=== PATIENT | female | born 1955 | race Hispanic/Latino ===

== ENCOUNTER 2017-08-08 12:05 | Emergency (ER) | payer OTHER ==
[2017-08-08 12:31] VITALS: BMI 20.7
--- NOTE | 2017-08-08 13:59 | ED PDOC ---
Lower Extremity Pain/Injury Time Seen by Provider: 08/08/17 12:15 Chief Complaint (Provider): Left lower extremity pain History Per: Patient History/Exam Limitations: no limitations Current Symptoms Are (Timing): Still Present Additional Complaint(s): Ms. 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 Patient states inversion to left ankle and is also complaining of left knee pain. Denies tib/fib pain. Has mild hip pain, but ambulating without difficulty. Denies any other medical problem at this time. Past Medical History Reviewed: Historical Data, Nursing Documentation, Vital Signs - Medical History PMH: No Chronic Diseases - Surgical History Surgical History: No Surg Hx - Family History Family History: States: Unknown Family Hx - Home Medications Home Medications: Ambulatory Orders Medication Instructions Recorded Naproxen [Naprosyn] 500 mg PO BID PRN #14 tablet 08/08/17 - Allergies Allergies/Adverse Reactions: Allergies Allergy/AdvReac Type Severity Reaction Status Date / Time No Known Allergies Allergy Verified 08/08/17 12:30 Review of Systems ROS Statement: Except As Marked, All Systems Reviewed And Found Negative Musculoskeletal: Positive for: Other ((+): Left knee pain, Inversion to left ankle, Hip pain. (-): Tibia/Fibula Pain) Physical Exam - Reviewed Nursing Documentation Reviewed: Yes Vital Signs Reviewed: Yes - Physical Exam Extremity: Positive for: Tenderness (Mild Tenderness to left dorsum of ankle), Other (Ambulating without difficulty) Medical Decision Making Medical Decision Making: Plan: - Motrin Tab 600 mg PO STAT Time: 13:42 - Left Ankle X-Ray neg fx - Left Knee X-Ray neg fx - Left Foot X-Ray neg fx Time: 13:52 - Left Hip X-Ray neg fx Time: 15:04 - Left Ankle MRI without Contrast - Left Knee MRI without Contrast ARMAND wrap was offered to patient Given degree of discomfort, MRI ordered and obtained, and result pending at time dispo, patient to followup for result in am Scribe Attestation: Documented by Wilian Ridley, acting as a scribe for Marcos Hernandez III, DO Provider Scribe Attestation: All medical record entries made by the Scribe were at my direction and personally dictated by me. I have reviewed the chart and agree that the record accurately reflects my personal performance of the history, physical exam, medical decision making, and the department course for this patient. I have also personally directed, reviewed, and agree with the discharge instructions and disposition. Disposition - Clinical Impression Clinical Impression: Ankle sprain, Knee sprain - Patient ED Disposition Is Patient to be Admitted: No Counseled Patient/Family Regarding: Studies Performed, Diagnosis - Disposition Disposition: Routine/Home Disposition Time: 16:50 Condition: STABLE Additional Instructions: Followup with employee health. Prescriptions: Naproxen [Naprosyn] 500 mg PO BID PRN #14 tablet PRN Reason: Pain, Moderate (4-7) Instructions: Ankle Sprain, Knee Sprain (DC) Forms: [employer] ([place]) - POA Present On Arrival: Falls Or Trauma
[2017-08-08 15:02] VITALS: BP 128/75; PULSE 73; RESP 15; TEMP 98.5; O2SAT 100
--- NOTE | 2017-08-08 15:32 | RAD ---
PROCEDURE: Left Foot Radiographs. HISTORY: fall trauma COMPARISON: None. FINDINGS: BONES: No acute fracture or destructive bony lesion identified. JOINTS: Limited cortical sclerosis appreciate throughout the interphalangeal joints as well as the 1st metatarsophalangeal and talonavicular joints compatible degenerative joint disease. There is a limited hallux valgus deformity SOFT TISSUES: Normal. OTHER FINDINGS: None. IMPRESSION: No acute fracture or dislocation. Limited degenerative findings as discussed above.
--- NOTE | 2017-08-08 15:34 | RAD ---
PROCEDURE: Left Ankle Radiographs. HISTORY: ankle pain trauma COMPARISON: None FINDINGS: BONES: No acute fracture or destructive bony lesion identified. JOINTS: No subluxation or dislocation identified. The ankle mortise appears intact. Trace lateral malleolar soft tissue edema is questioned. Limited degenerative cortical sclerosis appreciate the talonavicular joint. SOFT TISSUES: As above. OTHER FINDINGS: None. IMPRESSION: No acute fracture dislocation left ankle. Trace soft tissue edema is questioned overlying lateral malleolus. Limited degenerative change seen at hindfoot as discussed above.
--- NOTE | 2017-08-08 15:36 | RAD ---
PROCEDURE: Left Knee Radiographs. HISTORY: Pain. COMPARISON: None. FINDINGS: BONES: No acute fracture or destructive bony lesion identified. JOINTS: No subluxation or dislocation is appreciated. Limited medial femorotibial compartment joint space narrowing is identified compatible with degenerative joint disease. JOINT EFFUSION: None. OTHER FINDINGS: None. IMPRESSION: No acute fracture or dislocation identified. Limited degenerative changes noted as discussed above.
--- NOTE | 2017-08-08 15:38 | RAD ---
PROCEDURE: Left Hip X-ray Radiographs. HISTORY: fall COMPARISON: None. FINDINGS: BONES: No acute fracture or destructive bony lesion identified. JOINTS: Mild cortical sclerosis of the bilateral sacroiliac and hip joints reflects degenerative joint disease on a mild basis, symmetric. The pubic symphysis appears intact with the pelvic ring undisturbed. No dislocation of the left hip joint. SOFT TISSUES: Incidental vascular or dermal calcifications are seen overlying the left inguinal/hip soft tissues medially. OTHER FINDINGS: None. IMPRESSION: No acute fracture or dislocation left hip with the pelvic ring appearing intact without fracture is well. Limited degenerative changes seen the bilateral sacroiliac and hip joints.
--- NOTE | 2017-08-09 14:46 | MRI ---
MRI left ankle History: Ankle pain. Comparison: None available. Technique: Multi-echo multiplanar sequences were performed through the left ankle without the use of intravenous contrast. Findings: Reticulation and edema seen within the medial and lateral malleolar soft tissues. Anterior extensor tendons are preserved. Moderate tenosynovitis of the posterior tibial tendon sheath. Remainder of the medial flexor tendons are preserved. Peroneal tendons are preserved. Achilles tendon is preserved. Plantar fascia is preserved. Sinus tarsi is preserved. Anterior and posterior tibiofibular ligaments are preserved. Thickening with increased signal at the level of the anterior talofibular ligament suggestive for a moderate grade sprain and or mild partial tearing. Posterior talofibular ligament is preserved. Prominent reactive bone marrow edema seen within the lateral aspect of the distal fibula suggestive for bone bruising and or subchondral osseous injury. Clinical correlation. Moderate ankle joint effusion. Degenerative changes at the dorsal aspect of the talonavicular joint space. Low-grade sprain of the deltoid ligament. Impression: 1. Prominent reactive bone marrow edema seen within the lateral aspect of the distal fibula suggestive for bone bruising and or subchondral osseous injury. Clinical correlation. 2. Thickening with increased signal at the level of the anterior talofibular ligament suggestive for a moderate grade sprain and or mild partial tearing. 3. Moderate ankle joint effusion. 4. Reticulation and edema seen within the medial and lateral malleolar soft tissues. 5. Moderate tenosynovitis of the posterior tibial tendon sheath. 6. Degenerative changes at the dorsal aspect of the talonavicular joint space. 7. Low-grade sprain of the deltoid ligament.
--- NOTE | 2017-08-09 15:06 | MRI ---
MRI left knee History: Fall. Pain. Comparison: None available. Technique: Multi-echo multiplanar sequences were performed through the left knee without the use of intravenous contrast. Findings: Thinning and attenuation with increased signal seen within the visualized anterior cruciate ligament suggestive for a moderate grade sprain with some partial interstitial tearing. Minimal subchondral cyst formation noted at the footplate of the anterior cruciate ligament and the proximal tibia. Posterior cruciate ligament is preserved. Linear increased signal seen within the body of the medial meniscus extending to the articular surface on the coronal sequences best demonstrated on series 6, image 9 concerning for a possible small tear. Linear increased signal seen within the anterior root and horn of the lateral meniscus suggestive for intrasubstance degeneration and or mild intrasubstance partial tearing. Low-grade sprain of the proximal attachment of medial collateral ligament. Lateral collateral ligament complex structures appear preserved. Quadriceps tendon is preserved. Patellar tendon is preserved. Mild cartilage thinning overlying the medial patellar facet. Mild cartilage thinning involving the anterior midportion of the medial compartment of the femorotibial joint space. No significant suprapatellar joint effusion. Impression: 1. Thinning and attenuation with increased signal seen within the visualized anterior cruciate ligament suggestive for a moderate grade sprain with some partial interstitial tearing. Minimal subchondral cyst formation noted at the footplate of the anterior cruciate ligament and the proximal tibia. 2. Low-grade sprain of the proximal attachment of medial collateral ligament. 3. Linear increased signal seen within the body of the medial meniscus extending to the articular surface on the coronal sequences best demonstrated on series 6, image 9 concerning for a possible small tear. 4. Linear increased signal seen within the anterior root and horn of the lateral meniscus suggestive for intrasubstance degeneration and or mild intrasubstance partial tearing. 5. Mild cartilage thinning overlying the medial patellar facet. Mild cartilage thinning involving the anterior midportion of the medial compartment of the femorotibial joint space.
== END 2017-08-08 17:30 | disposition home or self-care (01) ==
LOC: H.ER 12:05
DX: S93.402A Sprain of unspecified ligament of left ankle, initial encounter (principal); S83.402A Sprain of unspecified collateral ligament of left knee, initial encounter; W19.XXXA Unspecified fall, initial encounter; Y99.0 Civilian activity done for income or pay; M65.9 Synovitis and tenosynovitis, unspecified